=== PATIENT | male | born 1970 | race Caucasian/White ===

== ENCOUNTER → 2018-01-29 | Outpatient (CLI) | payer OTHER ==
--- NOTE | 2018-01-29 09:53 | US ---
EXAMINATION TYPE: US liver DATE OF EXAM: 01/29/2018 COMPARISON: NONE CLINICAL HISTORY: R94.5 Abnormal liver function test. Patient states having abnormal labs EXAM MEASUREMENTS: Liver Length: 28.7 cm Gallbladder Wall: 0.2 cm CHD: 0.4 cm Right Kidney: 14.5 x 7.6 x 6.6 cm Pancreas: Appears echogenic and heterogenous. This most commonly relates to hepatic steatosis and li mits evaluation for underlying hepatic masses although can be seen in hepatocellular disease. Main p ancreatic duct= 2.3 mm., Within normal limits for the pancreatic body Limited visualization of tail due to overlying bowel gas Liver: Enlarged and echogenic. Probable focal fatty sparing seen adjacent to GB. Gallbladder: wnl Evidence for sonographic Limon's sign: neg CBD: Obscured by overlying bowel gas CHD: wnl Right Kidney: wnl IMPRESSION: 1. Heterogenous hyperechoic hepatic echotexture. This most commonly relates to hepatic steatosis but can be seen in other hepatocellular diseases. 2. Heterogeneity of the pancreatic parenchyma without focal visualized mass. Correlate with serum jim lase and lipase to exclude pancreatitis.
== END | disposition home or self-care (01) ==
LOC: RADUSWWP 07:32
PROVIDERS: ATTEND Internal Medicine
DX: K76.0 Fatty (change of) liver, not elsewhere classified (principal)
CPT/HCPCS: 76705